=== PATIENT | female | born 2005 | race Caucasian/White ===

== ENCOUNTER 2023-10-18 12:43 | Outpatient (CLI) | payer BC ==
--- NOTE | 2023-10-19 16:49 | Ultrasound Report ---
LIMITED ULTRASOUND OF LEFT BREAST: 10/18/2023 CLINICAL: Palpable left breast lump. Comparison is made to exams dated: 02/18/2023 ultrasound biopsy and 02/08/2023 ultrasound - [facility]. Color flow and real-time ultrasound of the left breast 10 o'clock region were performed. Link scale images of the real-time examination were reviewed. There is a 4.4 cm x 4 cm x 4.1 cm wider than tall oval mass in the left breast at 10 o'clock posterio r depth 5 cm from the nipple. This oval mass is hypoechoic with a well-defined, lobulated boundary a nd posterior acoustic enhancement. This abnormality is increased in size, more prominent, and repres ents a change and correlates as palpated. There is an associated biopsy clip. Color flow imaging de monstrates that there is no vascularity present. 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 IMPRESSION: BENIGN There is no sonographic evidence of malignancy. 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 Recommend surgical consultation to discuss possible surgical excisional biopsy versus continue d imaging surveillance. Findings and recommendations were conveyed to the patient during today's evaluation. This exam was interpreted at Station ID: [id number]. Electronically Signed By: Joaquin Donaldson M.D. aty/:10/18/2023 13:36:41 Ultrasound BI-RADS: 2 Benign BI-RADS CATEGORY: (2) - 2 Unspecified - other recall n/a LATERALITY: (B)
== END 2023-10-18 12:44 | disposition home or self-care (01) ==
LOC: DI 12:43
PROVIDERS: ATTEND Nurse Practitioner Family
DX: N60.12 Diffuse cystic mastopathy of left breast (principal)